=== PATIENT | female | born 1985 | race Caucasian/White ===

== ENCOUNTER → 2024-01-16 10:21 | Outpatient (REF) | payer OTHER, SELFPAY | LOC: HWRAD 10:21 | PROVIDERS: ATTENDING PHYSICIAN Physician Assistant; FAMILY PHYSICIAN Nurse Practitioner Family | DX: E04.2 Nontoxic multinodular goiter (principal) | CPT/HCPCS: 76536 ==

== ENCOUNTER → 2025-02-05 12:28 | Outpatient (REF) | payer OTHER, SELFPAY ==
[2025-02-05 13:37] LABS: Blood Urea Nitrogen 7 mg/dl (7-17)
== END ==
LOC: REG 12:28
PROVIDERS: ATTENDING PHYSICIAN Nurse Practitioner Family
DX: R58 Hemorrhage, not elsewhere classified (principal); R10.12 Left upper quadrant pain
CPT/HCPCS: 36415; 82565; 84520

== ENCOUNTER → 2025-02-12 17:10 | Outpatient (REF) | payer OTHER, SELFPAY | LOC: RAD 17:10 | PROVIDERS: ATTENDING PHYSICIAN Nurse Practitioner Family | DX: R58 Hemorrhage, not elsewhere classified (principal); R10.12 Left upper quadrant pain | CPT/HCPCS: 74177; Q9967 ==